=== PATIENT | male | born 1985 | race Two or more races ===

== ENCOUNTER 2024-10-05 17:25 | Emergency (ER) | payer OTHER ==
[~2024-10-05] VITALS: Ht 188 cm; Wt 80.0 kg
[2024-10-05] MEDS ORDERED: dexamethasone sod phosphate 10mg/ml inj PO STA (18:14)
[2024-10-05] MEDS: ipratropium/albuterol 3ml nebule NEB ONE (18:21)
[2024-10-05 18:22] VITALS: PULSE 61; RESP 16; O2SAT 98
[2024-10-05 18:28] VITALS: PULSE 65; RESP 12; O2SAT 97
[2024-10-05 18:46] VITALS: O2SAT 98
[2024-10-05] MEDS: dexamethasone 4mg tablet PO STA (19:08)
[2024-10-05] MEDS ORDERED: DOXY100C43 PO (19:36)
[2024-10-05] MEDS ORDERED: PRED20TA PO (19:36)
[2024-10-05 20:01] VITALS: BP 129/87; PULSE 87; RESP 16; TEMP 98.1
== END 2024-10-05 20:15 | disposition home or self-care (01) ==
LOC: ER 17:27
DX: J40 Bronchitis, not specified as acute or chronic (principal); Z20.822 Contact with and (suspected) exposure to COVID-19; Z88.0 Allergy status to penicillin; Z79.1 Long term (current) use of non-steroidal anti-inflammatories (NSAID); Z79.899 Other long term (current) drug therapy
CPT/HCPCS: 36415; 87502; 87503; 87811; 94640; 99283